=== PATIENT | male | born 1990 | race Hispanic/Latino ===

== ENCOUNTER 2024-06-03 01:44 | Emergency (ER) | payer BC ==
[2024-06-03] MEDS ORDERED: LIDOCAINE 1% 20 ML MDV ONE (02:12)
--- NOTE | 2024-06-03 02:16 | EDPHYS ---
Physician Documentation [facility] Name: Juan A Hahn Age: 34 yrs Sex: Male : 1990 Arrival Date: 06/03/2024 Time: 01:44 Bed IW1 Private MD: ED Physician Jaden Black HPI: 06/03 02:07 This 34 yrs old Male presents to ER via Unassigned with complaints of ec2 dentalgia. 02:07 Patient arrives today for evaluation of dental pain in the right lower teeth. States ec2 that he has a history of chipped tooth, states he is having dental pain. Reports no fevers or chills, no difficulty swallowing, no facial swelling.. Historical: - Allergies: 02:18 No Known Allergies; bm8 - Home Meds: 02:18 None [Active]; bm8 - PMHx: 02:18 None; bm8 - PSHx: 02:18 None; bm8 - Immunization history:: Adult Immunizations up to date. - Infectious Disease History:: Denies. - Social history:: Smoking status: Patient denies any tobacco usage or history of. ROS: 02:07 Constitutional: as per hpi ec2 Exam: 02:07 Constitutional: GEN: NAD Head: atraumatic Eyes: EOMI Ears: External ears are normal. ec2 Mouth: Right lateral lower dental chip noted, no erythema at the gumline, no facial swelling. CV: regular rate LUNGS: no respiratory distress ABD: non-distended SKIN: no evidence of rashes MSK: no evidence of trauma NEURO: moves all extremities equally Vital Signs: 02:16 BP 142 / 94; Pulse 62; Resp 17; Temp 97; Pulse Ox 100% ; Weight 99.79 kg; Height 5 ft. bm8 8 in. ; Pain 8/10; 02:16 Body Mass Index 33.45 (99.79 kg, 172.72 cm) bm8 02:16 Pain Scale: Adult bm8 [place] Coma Score: 02:19 Eye Response: spontaneous(4). Motor Response: obeys commands(6). Verbal Response: bm8 oriented(5). Total: 15. Procedures: 02:14 Nerve block: (dental) of right inferior alveolar nerve, Medication: Lidocaine 1% ec2 without epinephrine Amount: 10 mls were injected, Effect: the patient's symptoms are improved, Set up for procedure. Performed by Jaden Black MD Patient tolerated well. MDM: 02:03 Patient medically screened. ec2 02:07 Data reviewed: vital signs. ED course: Patient arrives today for evaluation of dental ec2 pain. Examination remarkable for HEENT findings as noted above. Will perform dental block. Will prescribe patient medication for pain. Presentation consistent with dentalgia. It does not look infected, no facial abscess, no submandibular swelling. Considered obtaining lab work as well as CT imaging however patient without clinical signs symptoms to indicate abscess. . Administered Medications: 02:12 Drug: Lidocaine Infiltration (1 %) 10 ml 20 ml Infiltration once; to bedside Volume: 20 bm8 ml; Route: Infiltration; 02:21 Follow up: Response: Medication administered at discharge. bm8 Disposition Summary: 06/03/24 02:16 Discharge Ordered Notes: Location: Home ec2 Condition: Stable ec2 Diagnosis - Dentalgia ec2 Followup: ec2 - With: Private Physician - When: - Reason: Re-evaluation by your physician Discharge Instructions: - Discharge Summary Sheet ec2 - Dental Pain, [id number] ec2 Forms: - Medication Reconciliation Form ec2 - Antibiotic Education ec2 - Prescription Opioid Use ec2 - Patient Portal Instructions ec2 - Leadership Thank You Letter ec2 Prescriptions: - acetaminophen-codeine 300-30 mg Oral tablet - take 1 tablet ORAL route every 6 hours; 15 tablet; Refills: 0, Product ec2 Selection Permitted Signatures: Jaden Black MD MD ec2 Temo Woods RN RN bm8
--- NOTE | 2024-06-03 02:25 | ER ---
Nurse's Notes [facility] Name: Juan A Hahn Age: 34 yrs Sex: Male : 1990 Arrival Date: 06/03/2024 Time: 01:44 Bed IW1 Private MD: Diagnosis: Dentalgia Presentation: 06/03 02:16 Chief complaint: Patient states: Toothache that began Carlitos morning and has bm8 progressively gotten worse. Coronavirus screen: At this time, the client does not indicate any symptoms associated with coronavirus-19. Ebola Screen: No symptoms or risks identified at this time. Initial Sepsis Screen: Does the patient meet any 2 criteria? No. Patient's initial sepsis screen is negative. Does the patient have a suspected source of infection? No. Patient's initial sepsis screen is negative. Risk Assessment: Do you want to hurt yourself or someone else? Patient reports no desire to harm self or others. Onset of symptoms was May 29, 2024. 02:16 Method Of Arrival: Ambulatory bm8 02:16 Acuity: DANNY 4 bm8 Triage Assessment: 02:18 General: Appears in no apparent distress. uncomfortable, Behavior is calm, cooperative, bm8 appropriate for age. Pain: Complains of pain in bottom right jaw Pain radiates to head Pain currently is 8 out of 10 on a pain scale. EENT: Poor dentition noted. Dental caries noted in lower right first molar (#30), lower right second molar (#31) and lower right third molar (#32) Reports pain since last saturday. Neuro: Level of Consciousness is awake, alert, obeys commands, Oriented to person, place, time, situation, Appropriate for age. Cardiovascular: Capillary refill < 3 seconds Patient's skin is warm and dry. Respiratory: Airway is patent Respiratory effort is even, unlabored, Respiratory pattern is regular, symmetrical. Historical: - Allergies: 02:18 No Known Allergies; bm8 - Home Meds: 02:18 None [Active]; bm8 - PMHx: 02:18 None; bm8 - PSHx: 02:18 None; bm8 - Immunization history:: Adult Immunizations up to date. - Infectious Disease History:: Denies. - Social history:: Smoking status: Patient denies any tobacco usage or history of. Screenin:19 [facility] ED Fall Risk Assessment (Adult) History of falling in the last 3 months, bm8 including since admission No falls in past 3 months (0 pts) Confusion or Disorientation No (0 pts) Intoxicated or Sedated No (0 pts) Impaired Gait No (0 pts) Mobility Assist Device Used No (0 pt) Altered Elimination No (0 pt) Score/Fall Risk Level 0 - 2 = Low Risk Oriented to surroundings, Maintained a safe environment, Educated pt \T\ family on fall prevention, incl call for assistance when getting out of bed, Assessed \T\ reinforced patient's understanding of fall precautions, Hourly rounding (assess needs \T\ fall precautionary measures) done, Used ambulatory aids as needed (educated on \T\ assisted with). Abuse screen: Denies threats or abuse. Nutritional screening: No deficits noted. Tuberculosis screening: No symptoms or risk factors identified. Assessment: 02:19 Reassessment: see triage note. bm8 Vital Signs: 02:16 BP 142 / 94; Pulse 62; Resp 17; Temp 97; Pulse Ox 100% ; Weight 99.79 kg; Height 5 ft. bm8 8 in. ; Pain 8/10; 02:16 Body Mass Index 33.45 (99.79 kg, 172.72 cm) bm8 02:16 Pain Scale: Adult bm8 [place] Coma Score: 02:19 Eye Response: spontaneous(4). Motor Response: obeys commands(6). Verbal Response: bm8 oriented(5). Total: 15. ED Course: 01:44 Patient arrived in ED. ec2 01:46 Jaden Black MD is Attending Physician. ec2 02:12 Temo Woods, YANELIS is Primary Nurse. bm8 02:18 Triage completed. bm8 02:18 Arm band placed on right wrist. bm8 02:19 Patient has correct armband on for positive identification. Provided Education on: post bm8 er care. Client placed on continuous cardiac and pulse oximetry monitoring. NIBP monitoring applied. Pulse ox on. NIBP on. Verbal reassurance given. 02:19 No provider procedures requiring assistance completed. Patient did not have IV access bm8 during this emergency room visit. Administered Medications: 02:12 Drug: Lidocaine Infiltration (1 %) 10 ml 20 ml Infiltration once; to bedside Volume: 20 bm8 ml; Route: Infiltration; 02:21 Follow up: Response: Medication administered at discharge. bm8 Medication: 02:19 VIS not applicable for this client. bm8 Outcome: 02:16 Discharge ordered by . ec2 02:19 Discharged to home ambulatory, bm8 02:19 Condition: stable 02:19 Discharge instructions given to patient, Instructed on discharge instructions, follow up and referral plans. no drinking with medication, no driving heavy equipment, medication usage, safety practices, Demonstrated understanding of instructions, follow-up care, medications, 02:22 Prescriptions given X 1, bm8 02:25 Patient left the ED. bm8 Signatures: Jaden Black MD MD ec2 Temo Woods, RN RN bm8
[2024-06-03 11:13] VITALS: BP 142/94; TEMP 97; O2SAT 100
== END 2024-06-03 02:25 | disposition home or self-care (01) ==
LOC: ER 01:44
DX: K08.89 Other specified disorders of teeth and supporting structures (principal)
CPT/HCPCS: 99283; J2001

== ENCOUNTER 2024-11-25 19:55 | Emergency (ER) | payer SELFPAY ==
--- NOTE | 2024-11-25 21:12 | RAD REPORT ---
EXAMINATION: XR LEFT FOREARM CLINICAL INDICATION: PAIN TECHNIQUE: Multiple projections of the left forearm were obtained. COMPARISON: No prior exam. FINDINGS: Lucency is seen in the region of the radial styloid which could be a thin fracture. Mild ad jacent soft tissue swelling. No dislocation. Advised correlation with point tenderness.
--- NOTE | 2024-11-25 21:13 | RAD REPORT ---
EXAMINATION: XR LEFT ELBOW CLINICAL INDICATION: Male, 34 years old. PAIN TECHNIQUE: Multiple views of the left elbow were obtained. COMPARISON: No prior exam. FINDINGS: No acute fracture or dislocation. Tiny olecranon spur.
--- NOTE | 2024-11-25 22:14 | ER ---
Nurse's Notes [facility] Name: Juan A Hahn Age: 34 yrs Sex: Male : 1990 Arrival Date: 11/25/2024 Time: 19:55 Bed DX3 Private MD: Diagnosis: Radial Styloid fracture;Elbow contustion Presentation: 11/25 20:25 Chief complaint: Patient states: he slipped and fell 2 days ago hitting his left elbow me1 on concrete. Pain has worsened since fall, today 8/10, throbbing. Coronavirus screen: At this time, the client does not indicate any symptoms associated with coronavirus-19. Ebola Screen: No symptoms or risks identified at this time. Initial Sepsis Screen: Does the patient meet any 2 criteria? No. Patient's initial sepsis screen is negative. Does the patient have a suspected source of infection? No. Patient's initial sepsis screen is negative. Risk Assessment: Do you want to hurt yourself or someone else?. Onset of symptoms was November 23, 2024. 20:25 [place] Of [place] [facility] [place] Acuity: DANNY 4 ne1 Triage Assessment: 20:27 General: Appears uncomfortable, well groomed, well developed, well nourished, Behavior me1 is calm, cooperative, appropriate for age. Pain: Complains of pain in left elbow and palmar aspect of left forearm Pain does not radiate. Pain currently is 8 out of 10 on a pain scale. Quality of pain is described as throbbing, Pain began 2-3 days ago. Is continuous. EENT: No signs and/or symptoms were reported regarding the EENT system. Neuro: Level of Consciousness is awake, alert, obeys commands, Oriented to person, place, time, situation, Appropriate for age. Cardiovascular: Patient's skin is warm and dry. Respiratory: Airway is patent Respiratory effort is even, unlabored, Respiratory pattern is regular, symmetrical. GI: No signs and/or symptoms were reported involving the gastrointestinal system. : No signs and/or symptoms were reported regarding the genitourinary system. Derm: Skin is intact, is healthy with good turgor, Skin is pink, warm \T\ dry. Musculoskeletal: Reports pain in left elbow and palmar aspect of left forearm. Injury Description: slip and fall hitting left elbow on concrete 2 days ago. Historical: - Allergies: 20:27 No Known Allergies; me1 - PMHx: 20:27 None; me1 - PSHx: 20:27 None; me1 - Immunization history:: Adult Immunizations up to date. - Infectious Disease History:: Denies. - Social history:: Smoking status: Reported history of juuling and/or vaping. Screenin:59 [facility] ED Fall Risk Assessment (Adult) History of falling in the last 3 months, vc1 including since admission Yes- single mechanical fall (1 pt) Confusion or Disorientation No (0 pts) Intoxicated or Sedated No (0 pts) Impaired Gait No (0 pts) Mobility Assist Device Used No (0 pt) Altered Elimination No (0 pt) Score/Fall Risk Level 0 - 2 = Low Risk Oriented to surroundings, Maintained a safe environment, Educated pt \T\ family on fall prevention, incl call for assistance when getting out of bed. Abuse screen: Denies threats or abuse. Nutritional screening: No deficits noted. Tuberculosis screening: No symptoms or risk factors identified. Assessment: 23:01 Reassessment: No changes from previously documented assessment. Patient and/or family vc1 updated on plan of care and expected duration. Pain level reassessed. Patient is alert, oriented x 3, equal unlabored respirations, skin warm/dry/pink. Vital Signs: 20:25 BP 128 / 92; Pulse 89; Resp 17; Temp 98.5; Pulse Ox 100% ; Weight 99.79 kg; Height 5 me1 ft. 8 in. ; Pain 8/10; 23:00 BP 126 / 88; Pulse 87; Resp 16; Pulse Ox 100% ; vc1 20:25 Body Mass Index 33.45 (99.79 kg, 172.72 cm) me1 20:25 Pain Scale: Adult me1 ED Course: 19:58 Patient arrived in ED. mr 20:05 Johana Owen FNP-C is [facility]. kb 20:05 Jaden Black MD is Attending Physician. kb 20:27 Triage completed. me1 20:27 Arm band placed on Patient placed in waiting room. me1 21:00 Patient has correct armband on for positive identification. Provided Education on: vc1 safety. 21:08 Forearm Left XRAY In Process Unspecified. EDMS 21:08 Elbow Left 3 View XRAY In Process Unspecified. EDMS 22:50 Sling applied to left arm. vk 22:51 Orthoglass splint: Sugar tong splint applied on left arm. vk 23:00 No provider procedures requiring assistance completed. Patient did not have IV access vc1 during this emergency room visit. Administered Medications: No medications were administered Medication: 23:00 VIS not applicable for this client. vc1 Outcome: 22:14 Discharge ordered by . rush 23:00 Discharged to home ambulatory, vc1 23:00 Condition: good 23:00 Discharge instructions given to patient, Instructed on discharge instructions, follow up and referral plans. medication usage, Demonstrated understanding of instructions, follow-up care, medications, Prescriptions given X 1, 23:01 Patient left the ED. vc1 Signatures: Dispatcher [employer] EDMS Johana Owen, CULTURE MEDIA LABORATORY ASSISTANT-C CULTURE MEDIA LABORATORY ASSISTANT-CkEdith Shin, Reg Reg mr Мария Gallego RN RN vc1 Asmita Couch RN RN me1 Janet Eugene
--- NOTE | 2024-11-25 22:14 | EDPHYS ---
Physician Documentation [facility] Name: Juan A Hahn Age: 34 yrs Sex: Male : 1990 Arrival Date: 11/25/2024 Time: 19:55 Bed DX3 Private MD: ED Physician Jaden Black HPI: 11/25 22:12 This 34 yrs old Male presents to ER via Ambulatory with complaints of Fall kb Injury, Arm Injury, Elbow Injury. 22:12 Pt is a 34 year old male who presents for pain to left elbow and wrist that started a kb few days ago after falling onto left arm. Denies any other injuries. States the pain has continued and he is unable to straighten arm fully so that is what prompted his visit to the ER this evening. . Historical: - Allergies: 20:27 No Known Allergies; me1 - PMHx: 20:27 None; me1 - PSHx: 20:27 None; me1 - Immunization history:: Adult Immunizations up to date. - Infectious Disease History:: Denies. - Social history:: Smoking status: Reported history of juuling and/or vaping. ROS: 22:11 Constitutional: As per HPI kb Exam: 22:11 Constitutional: This is a well developed, well nourished patient who is awake, alert, kb and in no acute distress. Head/Face: Normocephalic, atraumatic. ENT: Moist Mucous membranes Cardiovascular: Regular rate Respiratory: Respirations even and unlabored. No increased work of breathing. Talking in full sentences Skin: Warm, dry with normal turgor. Normal color. Neuro: Awake and alert, GCS 15, oriented to person, place, time, and situation. 22:11 Musculoskeletal/extremity: Extremities: grossly normal except: noted in the left elbow and left wrist: decreased ROM, pain, tenderness, ROM: limited active range of motion, limited active range of motion due to pain, Circulation is intact in all extremities. Sensation intact. Vital Signs: 20:25 BP 128 / 92; Pulse 89; Resp 17; Temp 98.5; Pulse Ox 100% ; Weight 99.79 kg; Height 5 me1 ft. 8 in. ; Pain 8/10; 23:00 BP 126 / 88; Pulse 87; Resp 16; Pulse Ox 100% ; vc1 20:25 Body Mass Index 33.45 (99.79 kg, 172.72 cm) me1 20:25 Pain Scale: Adult me1 MDM: 20:05 Medical Screening Exam initiated kb 22:12 Differential diagnosis: contusion, fracture, sprain, strain. Data reviewed: vital kb signs, nurses notes. Counseling: I had a detailed discussion with the patient and/or guardian regarding the historical points, exam findings, and any diagnostic results supporting the discharge/admit diagnosis, radiology results, the need for outpatient follow up, a orthopedic surgeon, to return to the emergency department if symptoms worsen or persist or if there are any questions or concerns that arise at home. 11/25 20:35 Order name: Forearm Left XRAY; Complete Time: 21:20 kb 11/25 20:35 Order name: Elbow Left 3 View XRAY; Complete Time: 21:20 kb 11/25 22:15 Order name: Sugar Tong Forearm Splint; Complete Time: 22:50 kb 11/25 22:15 Order name: Sling; Complete Time: 22:50 kb Administered Medications: No medications were administered Disposition Summary: 11/25/24 22:14 Discharge Ordered Notes: Location: Home kb Condition: Stable kb Diagnosis - Radial Styloid fracture kb - Elbow contustion kb Followup: kb - With: Emergency Department - When: As needed - Reason: Worsening of condition Followup: kb - With: Private Physician - When: 2 - 3 days - Reason: Recheck today's complaints, Continuance of care, Re-evaluation by your physician Discharge Instructions: - Discharge Summary Sheet kb - Radial Fracture kb - Elbow Contusion, [id number] kb Forms: - Medication Reconciliation Form kb - Antibiotic Education kb - Prescription Opioid Use kb - Patient Portal Instructions kb - Leadership Thank You Letter kb Prescriptions: - Diclofenac Sodium 75 mg Oral tablet, delayed release (enteric coated) - take 1 tablet ORAL route 2 times per day As needed; 30 tablet; Refills: 0, kb Product Selection Permitted Signatures: Dispatcher [employer] Johana Darnell FNP-Asmita Saini, RN RN me1
[2024-11-26 03:00] VITALS: TEMP 98.5; O2SAT 100
[2024-11-26 03:02] VITALS: BP 126/88
== END 2024-11-25 23:01 | disposition home or self-care (01) ==
LOC: ER 19:55
PROC: 2W3DX1Z Immobilization of Left Lower Arm using Splint (ICD-10-PCS; principal; 2024-11-25)
DX: S52.512A Displaced fracture of left radial styloid process, initial encounter for closed fracture (principal); S50.02XA Contusion of left elbow, initial encounter
CPT/HCPCS: 99283